=== PATIENT | male | born 1935 | race Caucasian/White ===

== ENCOUNTER 2017-08-21 18:28 | Inpatient (IN) | payer OTHER ==
[~2017-08-21] VITALS: Ht 160 cm; Wt 52.0 kg
[~2017-08-21 18:28] MED LIST: APAP/HYDROCODON1 T15 PO; COLACE100 MG PO; DIALYVITE 800 W1 TA2 PO; ECO81 PO; GABAPENTIN100 M2 PO; LOSARTAN POTASS50 M1 PO; NATURE'S BLEND F1 MG PO; NOR5 PO; OMEPRAZOLE40 M1 PO; PHOSLO667 MG PO; PRO4I SC; SIMVASTATIN10 M1 PO; TRAMADOL HCL50 MG PO; XAN5 PO; XANAX0.5 MG PO
[2017-08-21] MEDS ORDERED: [UNRECOGNIZED DRUG - CODE] SQ (19:42)
[2017-08-21] MEDS ORDERED: TRAMADOL HCL50 MG PO (19:43)
[2017-08-21] MEDS ORDERED: XANAX0.5 MG PO (19:43)
[2017-08-21] MEDS ORDERED: ASPIR 8181 MG PO (19:43)
[2017-08-21] MEDS ORDERED: PHOSLO667 MG PO (19:43)
[2017-08-21] MEDS ORDERED: OMEPRAZOLE40 M1 PO (19:44)
[2017-08-21] MEDS ORDERED: SIMVASTATIN10 M1 PO (19:44)
[2017-08-21] MEDS ORDERED: NEPHRO-VITE VITA1 EA PO (19:44)
[2017-08-21] MEDS ORDERED: AMLODIPINE BESYL5 M2 PO (19:44)
[2017-08-21] MEDS ORDERED: GABAPENTIN100 M2 PO (19:45)
[2017-08-21] MEDS ORDERED: NATURE'S BLEND F1 MG PO (19:45)
[2017-08-21 19:46] LABS: BASOPHIL % 0.4 % (0-2); PLATELET COUNT 298 x10^3mcL (130-400)
[2017-08-21] MEDS ORDERED: COLACE100 MG PO (19:46)
[2017-08-21] MEDS ORDERED: ACETAMINOPHEN-H1 TA1 PO (19:46)
[2017-08-21] MEDS ORDERED: LOSARTAN POTASS50 M1 PO (19:46)
[2017-08-21 19:50] LABS: CARBON DIOXIDE 30.5 mmol/L (21-32); CHLORIDE SERUM 100 mmol/L (98-107); CREATININE SERUM 3.5 mg/dL (0.7-1.3); GLUCOSE SERUM 135 mg/dL (74-106); POTASSIUM SERUM 3.9 mmol/L (3.5-5.1); RED CELL DISTRIBUTION WIDTH 17.2 % (11.5-14.5); SODIUM SERUM 136 mmol/L (136-145)
[2017-08-21 19:54] LABS: ALBUMIN 2.8 g/dL (3.4-5.0); ALKALINE PHOSPHATASE 158 U/L (46-116); ALT/SGPT 22 U/L (16-63); AST/SGOT 27 U/L (15-37); BILIRUBIN TOTAL 0.3 mg/dL (0.20-1.00); CHOLESTEROL 114 mg/dL (<200); CHOLESTEROL/HDL RATIO 1.8; HDL CHOLESTEROL 62 mg/dL (40-60); LIPASE 143 IU/L (73-393); TOTAL PROTEIN, SERUM 7.1 g/dL (6.4-8.2); TRIGLYCERIDES 71 mg/dL (<150)
[2017-08-21 20:06] LABS: T3 TOTAL 0.56 ng/mL
[2017-08-21 20:08] LABS: FREE T4 1.31 ng/dL (0.76-1.46); T4(THYROXINE) 8.2 ug/dL (4.7-13.3)
[2017-08-21 20:45] LABS: UA SPECIFIC GRAVITY 1.015 (1.005-1.035); microscopic required? YES; urine erythrocyte NEGATIVE (NEGATIVE)
[2017-08-21 23:19] VITALS: BP 151/47
[2017-08-21 23:28] VITALS: Ht 160 cm; Wt 52.0 kg
[2017-08-22 01:40] LABS: MAGNESIUM 2.2 mg/dL (1.8-2.4); PHOSPHOROUS 2.7 mg/dL (2.5-4.9)
[2017-08-22 05:16] LABS: BASOPHIL % 0.7 % (0-2); PLATELET COUNT 281 x10^3mcL (130-400)
[2017-08-22 05:23] LABS: RED CELL DISTRIBUTION WIDTH 16.7 % (11.5-14.5)
[2017-08-22 05:32] LABS: CALCIUM 9.1 mg/dL (8.5-10.1); CARBON DIOXIDE 31.9 mmol/L (21-32); CHLORIDE SERUM 100 mmol/L (98-107); GLUCOSE SERUM 87 mg/dL (74-106); MAGNESIUM 2.1 mg/dL (1.8-2.4); POTASSIUM SERUM 4.2 mmol/L (3.5-5.1); SODIUM SERUM 137 mmol/L (136-145)
[2017-08-22 05:38] LABS: CREATININE SERUM 4.2 mg/dL (0.7-1.3)
[2017-08-22 06:25] VITALS: BP 154/50
[2017-08-22 08:42] VITALS: BP 144/48
[2017-08-22 14:10] VITALS: BP 138/44
[2017-08-22 17:58] VITALS: BP 137/45
[2017-08-22 20:11] LABS: UA SPECIFIC GRAVITY 1.015 (1.005-1.035); microscopic required? YES; urine erythrocyte NEGATIVE (NEGATIVE)
[2017-08-22 21:35] VITALS: BP 163/56
[2017-08-23 05:30] VITALS: BP 153/55
[2017-08-23 05:55] LABS: BASOPHIL % 0.4 % (0-2); PLATELET COUNT 275 x10^3mcL (130-400)
[2017-08-23 06:25] LABS: CALCIUM 9.4 mg/dL (8.5-10.1); CHLORIDE SERUM 98 mmol/L (98-107); GLUCOSE SERUM 95 mg/dL (74-106); MAGNESIUM 2.3 mg/dL (1.8-2.4); PHOSPHOROUS 3.9 mg/dL (2.5-4.9); POTASSIUM SERUM 4.8 mmol/L (3.5-5.1); SODIUM SERUM 133 mmol/L (136-145)
[2017-08-23 06:45] LABS: CREATININE SERUM 5.4 mg/dL (0.7-1.3)
[2017-08-23 10:00] VITALS: BP 149/52
[2017-08-23 13:49] VITALS: BP 125/79
[2017-08-23 17:08] VITALS: BP 137/51
[2017-08-23 20:15] VITALS: BP 149/48
[2017-08-23 21:04] VITALS: BP 146/48
[2017-08-24 05:20] VITALS: BP 133/46
[2017-08-24 08:26] VITALS: BP 136/43
[2017-08-24 12:19] VITALS: BP 124/40
[2017-08-24 13:56] VITALS: BP 124/40
[2017-08-24] MEDS ORDERED: MSC15 PO (14:47)
== END 2017-08-24 15:15 | disposition hospice, home (50) | DRG 291 ==
LOC: ED 18:28 → DU 22:25
PROVIDERS: Family Medicine; Specialist
PROC: 5A1D70Z Performance of Urinary Filtration, Intermittent, Less than 6 Hours Per Day (ICD-10-PCS; principal; 2017-08-21)
DX: I13.2 Hypertensive heart and chronic kidney disease with heart failure and with stage 5 chronic kidney disease, or end stage renal disease (principal); I50.43 Acute on chronic combined systolic (congestive) and diastolic (congestive) heart failure; N17.0 Acute kidney failure with tubular necrosis; N18.6 End stage renal disease; G90.8 Other disorders of autonomic nervous system; Z99.2 Dependence on renal dialysis; E78.00 Pure hypercholesterolemia, unspecified; E11.22 Type 2 diabetes mellitus with diabetic chronic kidney disease; D64.9 Anemia, unspecified; R33.9 Retention of urine, unspecified
CPT/HCPCS: 82962; 83880; 84439; J1940; J2405; J7030; Q0092